=== PATIENT | male | born 1995 | race African-American/Black ===

== ENCOUNTER 2016-09-17 14:22 | Emergency (ER) | payer SELFPAY ==
[~2016-09-17] VITALS: Ht 195.6 cm; Wt 104.3 kg
[2016-09-17 14:33] VITALS: BP 143/87
[2016-09-17] MEDS ORDERED: AZITHROMYCIN 250 MG TABLET. PO ONE (14:45)
[2016-09-17] MEDS ORDERED: metroNIDAZOLE 500 MG TABLET PO ONE (14:45)
[2016-09-17] MEDS ORDERED: cefTRIAXone IM 250 MG VIAL IM ONE (14:45)
--- NOTE | 2016-09-17 15:17 | PHYS DOC ---
Past Medical History Past Medical History: No Pertinent History Past Surgical History: Other Additional Past Surgical Histo: right leg Alcohol Use: None Drug Use: None Adult General Chief Complaint Chief Complaint: SEXUALLY TRANSMITTED DISEASE HPI HPI Patient is a 21 year old male who presents with STD concern. Patient would like to be tested and treated. Patient states he has been not distended. He will not disclose for how many days. He is on his phone playing as we speak. Review of Systems Review of Systems Constitutional: Denies fever or chills [] Eyes: Denies change in visual acuity, redness, or eye pain [] GI: Penile discharge : Denies dysuria or hematuria [] Musculoskeletal: Denies back pain or joint pain [] Integument: Denies rash or skin lesions [] Neurologic: Denies headache, focal weakness or sensory changes [] Endocrine: Denies polyuria or polydipsia [] Current Medications Current Medications Current Medications Medications (Trade) Dose Ordered Sig/Edmundo Start Time Stop Time Status Last Admin Dose Admin Azithromycin (Zithromax) 1,000 mg 1X ONCE 09/17/16 14:45 09/17/16 14:55 DC 09/17/16 15:02 1,000 MG Ceftriaxone Sodium (Rocephin Im) 250 mg 1X ONCE 09/17/16 14:45 09/17/16 14:55 DC 09/17/16 15:06 250 MG Metronidazole (Flagyl) 2,000 mg 1X ONCE 09/17/16 14:45 09/17/16 14:55 DC 09/17/16 15:02 2,000 MG Allergies Allergies Allergies Coded Allergies Type Severity Reaction Last Updated Verified No Known Drug Allergies 09/17/16 No Physical Exam Physical Exam Constitutional: Well developed, well nourished, no acute distress, non-toxic appearance. [] HENT: Normocephalic, atraumatic, bilateral external ears normal, oropharynx moist, no oral exudates, nose normal. [] Abdomen: Bowel sounds normal, soft, no tenderness, no masses, no pulsatile masses. [] Skin: Warm, dry, no erythema, no rash. [] Back: No tenderness, no CVA tenderness. [] Extremities: No tenderness, no cyanosis, no clubbing, ROM intact, no edema. [] Neurologic: Alert and oriented X 3, normal motor function, normal sensory function, no focal deficits noted. [] Psychologic: Affect normal, judgement normal, mood normal. [] Current Patient Data Vital Signs Vital Signs Date Time Temp Pulse Resp B/P (MAP) Pulse Ox O2 Delivery O2 Flow Rate FiO2 09/17/16 14:33 98.6 62 18 99 Room Air 98.6 EKG EKG [] Radiology/Procedures Radiology/Procedures [] Course & Med Decision Making Course & Med Decision Making Pertinent Labs and Imaging studies reviewed. (See chart for details) Patient is in the ED for STD testing and treatment. He was given Flagyl Rocephin and azithromycin. Urine was sent to lab. Educated on safe sex practices especially the need to use protection. Dragon Disclaimer Dragon Disclaimer This electronic medical record was generated, in whole or in part, using a voice recognition dictation system. Departure Departure Impression: Primary Impression: Concern about STD in male without diagnosis Disposition: 01 HOME, SELF-CARE Condition: STABLE Referrals: NO PCP (PCP) Follow-up with the health Department for STD concern Patient Instructions: Sexually Transmitted Disease, [id number] Additional Instructions: You were seen in the ED with STD concern, you were treated. You cannot have sex for one week. You must call all your sex partners, let them know you were treated for STDs, have them get treated as well. Please follow-up with the health department for further STD concerns RENATO KAUR APRN Sep 17, 2016 15:17
[2016-09-17 15:22] LABS: BILIRUBIN,URINE NEGATIVE (NEG); GLUCOSE,URINE NEGATIVE (NEG); NITRITE,URINE NEGATIVE (NEG); PROTEIN,URINE 30 mg/dL (NEG-TRACE)
[2016-09-17 16:05] LABS: BACTERIA,URINE 0 /HPF (0-FEW); RBC,URINE 0 /HPF (0-2); SQUAMOUS EPITHELIAL CELL,UR OCC /LPF
== END 2016-09-17 15:20 | disposition home or self-care (01) ==
LOC: ER 14:22
DX: Z20.2 Contact with and (suspected) exposure to infections with a predominantly sexual mode of transmission (principal)
CPT/HCPCS: 81001; 87491; 87591; 96372; 99284; J0696; Q0144

== ENCOUNTER 2018-05-02 13:36 | Emergency (ER) | payer SELFPAY ==
[~2018-05-02] VITALS: Ht 193 cm; Wt 108.9 kg
[2018-05-02 13:44] VITALS: BP 139/91
[2018-05-02] MEDS ORDERED: traMADol 50 MG TABLET PO ONE (14:15)
[2018-05-02] MEDS ORDERED: IBUPROFEN 400 MG TABLET. PO ONE (14:15)
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
[2018-05-02] MEDS ORDERED: MELO7.5T29 PO (15:18)
[2018-05-02] MEDS ORDERED: HYDR-3164 PO (15:18)
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
== END 2018-05-02 15:25 | disposition home or self-care (01) ==
LOC: ER 13:36
DX: S20.211A Contusion of right front wall of thorax, initial encounter (principal); Y08.89XA Assault by other specified means, initial encounter; Y93.89 Activity, other specified; Y92.89 Other specified places as the place of occurrence of the external cause; Y99.8 Other external cause status
CPT/HCPCS: 71101; 99283